=== PATIENT | male | born 1945 | race Caucasian/White ===

== ENCOUNTER 2018-04-09 08:18 | Emergency (ER) | payer OTHER ==
[~2018-04-09] VITALS: Ht 177.8 cm; Wt 82.1 kg
--- NOTE | 2018-04-09 08:19 | NUR ---
PT BIBA BLS TO BED 10
[2018-04-09 08:27] VITALS: BP 106/49
[2018-04-09] MEDS ORDERED: ALBUTEROL 0.083% 2.5 MG/3 ML NEBU INH ONE (08:55)
[2018-04-09] MEDS ORDERED: IPRATROPIUM 0.02% 0.5 MG/2.5 ML NEBU INH ONE (08:55)
--- NOTE | 2018-04-09 09:04 | NUR ---
PT TAKEN TO CT IN [place]
[2018-04-09 09:55] LABS: BASOPHILS # (AUTO) 0.1 K/uL (0.00-0.22); BASOPHILS % (AUTO) 1.3 % (0.0-2.0); EOSINOPHILS % (AUTO) 0.5 % (0.0-4.0); HEMATOCRIT 39.4 % (36-52); HEMOGLOBIN 13.4 g/dL (12.0-18.0); LYMPHOCYTES # (AUTO) 1.5 K/uL (2.0-11.5); LYMPHOCYTES % (AUTO) 29.2 % (20.5-51.1); MEAN CORPUSCULAR HEMOGLOBIN 30 pg (27-31); MEAN CORPUSCULAR HGB CONC 34 g/dL (33-37); MEAN CORPUSCULAR VOLUME 88.2 fL (80-94); MONOCYTES # (AUTO) 0.5 K/uL (0.8-1.0); MONOCYTES % (AUTO) 10.1 % (1.7-9.3); NEUTROPHILS % (AUTO) 58.9 % (42.2-75.2); PLATELET COUNT (AUTO) 86 K/uL (140-450); RED BLOOD CELL COUNT(AUTO) 4.47 MIL/uL (4.20-6.10); RED CELL DISTRIBUTION WIDTH 15.2 % (11.6-13.7); WHITE BLOOD COUNT (AUTO) 5.1 K/uL (4.8-10.8)
--- NOTE | 2018-04-09 10:03 | NUR ---
ADMTTING DX: GENERALIZED WEAKNESS HX: COPD LOC AWAKE AND ALERT RESPONSIVE HFW POSITION EDUCATION PROVIDED TO PATIENT WITH ACKNOWLEDGEMENT ON HHN THERAPY AND RESPIRATORY DRUGS HHN THERAPY GIVEN ORDERED ENCOURAGED PATIENT FOR INTERMITTENT DEEP BREATHING DURING THERAPY TOLERATED WELL WITHOUT INCIDENT
[2018-04-09 10:06] LABS: ANION GAP 8.8 (8-16); CARBON DIOXIDE 33.5 mmol/L (21-32); CHLORIDE 102 mmol/L (98-107); GLUCOSE 102 mg/dL (74-106); POTASSIUM 4.3 mmol/L (3.5-5.1); SODIUM SERUM 140 mmol/L (136-145); UREA NITROGEN, BLOOD 15 mg/dL (7-18)
[2018-04-09 10:13] LABS: AMYLASE 37 U/L (25-115); ASPARTATE AMINOTRANSFERASE 14 U/L (15-37); LIPASE 73 U/L (73-393); TOTAL BILIRUBIN 1.7 mg/dL (0.0-1.0)
[2018-04-09 10:18] LABS: PROTHROMBIN TIME 11.6 secs (10.8-13.4)
--- NOTE | 2018-04-09 11:00 | NUR ---
COVERING CARE FOR NURSE MARLENE
--- NOTE | 2018-04-09 11:30 | NUR ---
PATIENT IN NO APPARENT DISTRESS. AWAITING FOR DISPOSITION
--- NOTE | 2018-04-09 12:15 | NUR ---
PATIENT ASSISTED TO HALI UP TO VOID, TOLERATED
--- NOTE | 2018-04-09 13:03 | NUR ---
RECEIVED REPORT FROM MARLENE BILLINGSLEY FOR CONTINUITY OF CARE
[2018-04-09 13:17] LABS: APPEARANCE,URINE CLEAR (CLEAR); COLOR,URINE YELLOW (YELLOW)
[2018-04-09 13:18] LABS: BILIRUBIN,URINE NEGATIVE (NEGATIVE); BLOOD, URINE TRACE (NEGATIVE); UGLUCOSE NEGATIVE (NEGATIVE)
[2018-04-09 13:19] LABS: LEUKOCYTE ESTERASE ,URINE NEGATIVE (NEGATIVE); NITRITE, URINE NEGATIVE (NEGATIVE)
[2018-04-09 13:24] LABS: RBC,URINE 0-5 (RARE) /HPF (0-5); WBC,URINE 0-5 (RARE) /HPF (0-5)
--- NOTE | 2018-04-09 13:33 | NUR ---
PT PROVIDED WITH A URINAL.
--- NOTE | 2018-04-09 13:41 | NUR ---
URINE COLLECTED AND SENT TO LAB. PT RESTING IN BED SMILING WITH FAMILY AT BEDSIDE. VSS. O2 VIA N/C AT 2L/MIN. O2 SAT AT 99% WILL CONTINUE TO MONITOR
--- NOTE | 2018-04-09 14:00 | NUR ---
PT GIVEN FOOD TRAY
[2018-04-09 14:54] VITALS: BP 99/54
--- NOTE | 2018-04-09 14:54 | NUR ---
Patient discharged with v/s stable. Written and verbal after care instructions given and explained. Patient verbalized understanding. Wheel Chair Assisted with to car. All questions addressed prior to discharge. Advised to follow up with PMD.
== END 2018-04-09 14:54 | disposition home or self-care (01) ==
LOC: EDSEX 08:18 → MED 08:18
DX: R53.1 Weakness (principal); R42 Dizziness and giddiness; J44.9 Chronic obstructive pulmonary disease, unspecified; E11.9 Type 2 diabetes mellitus without complications; K21.9 Gastro-esophageal reflux disease without esophagitis; E07.9 Disorder of thyroid, unspecified; I25.10 Atherosclerotic heart disease of native coronary artery without angina pectoris; G20 Parkinson's disease; Z88.0 Allergy status to penicillin; Z88.1 Allergy status to other antibiotic agents; Z86.73 Personal history of transient ischemic attack (TIA), and cerebral infarction without residual deficits
CPT/HCPCS: 36415; 70450; 71045; 80053; 81001; 82150; 82948; 83690; 84484; 85025; 85610; 85730; 87040; 93005; 99285; J7613; J7644; Q0092

== ENCOUNTER 2019-12-14 02:44 | Emergency (ER) | payer OTHER ==
[~2019-12-14] VITALS: Ht 177.8 cm; Wt 81.6 kg
[2019-12-14 02:44] VITALS: BP 139/54
--- NOTE | 2019-12-14 02:44 | NUR ---
TRANSFERED SELF FROM [facility] TO BED 4.
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
--- NOTE | 2019-12-14 03:30 | NUR ---
RIGHT FOREARM PERIPHERAL IV STARTED ON FIRST ATTEMPT, 20G, GOOD BLOOD RETURN, FLUSHED WITHOLUT SYMPTOMS.
--- NOTE | 2019-12-14 04:00 | NUR ---
ASSISTED PATIENT TO RESTROOM FOR URINE SAMPLE, STANDBY ASSISTANCE NEEDED. BACK TO BED WITHOUT INCIDENT AND CONNECTED TO MONITOR.
[2019-12-14] MEDS ORDERED: NACL 0.9% 2,500 ML IV ONE (04:33)
[2019-12-14] MEDS ORDERED: VANCOMYCIN 1,000 MG in DEXTROSE 5% 250 ML IV ONE (04:35)
[2019-12-14] MEDS ORDERED: MEROPENEM 1,000 MG in NACL 0.9% 100 ML IV ONE (04:35)
--- NOTE | 2019-12-14 05:15 | NUR ---
LEFT KNEE OPEN WOUND CLEANED AND REDRESSED. ERMD AT BEDSIDE TO ASSESS WOUND. FOUL ODOR NOTED, SLIGHTLY BLEEDING (MINIMAL). DENIES PAIN. NO SWELLING NOTED, FULL RANGE OF MOTION OF KNEE.
[2019-12-14 05:22] LABS: APPEARANCE,URINE CLEAR (CLEAR); BILIRUBIN,URINE NEGATIVE (NEGATIVE); BLOOD, URINE 1+ (NEGATIVE); COLOR,URINE YELLOW (YELLOW); LEUKOCYTE ESTERASE ,URINE NEGATIVE (NEGATIVE); NITRITE, URINE NEGATIVE (NEGATIVE); UGLUCOSE NEGATIVE (NEGATIVE)
[2019-12-14 05:29] LABS: RED BLOOD CELL COUNT(AUTO) 3.27 MIL/uL (4.20-6.10); WHITE BLOOD COUNT (AUTO) 2.4 K/uL (4.8-10.8)
[2019-12-14 05:31] LABS: WBC,URINE 0-5 /HPF (0-5)
[2019-12-14 05:37] LABS: HEMOGLOBIN 8.6 g/dL (12.0-18.0); MEAN CORPUSCULAR HEMOGLOBIN 26 pg (27-31); MEAN CORPUSCULAR HGB CONC 31 g/dL (33-37); MEAN CORPUSCULAR VOLUME 85.5 fL (80-94); PLATELET COUNT (AUTO) 100 K/uL (140-450); RED CELL DISTRIBUTION WIDTH 16.9 % (11.6-13.7)
[2019-12-14 05:41] LABS: ALBUMIN 4.3 g/dL (3.4-5.0); ANION GAP 10.9 (8-16); ASPARTATE AMINOTRANSFERASE 22 U/L (15-37); CARBON DIOXIDE 32.1 mmol/L (21-32); CHLORIDE 108 mmol/L (98-107); GLUCOSE 108 mg/dL (74-106); SODIUM SERUM 147 mmol/L (136-145); TOTAL BILIRUBIN 2.2 mg/dL (0.0-1.0); UREA NITROGEN, BLOOD 23 mg/dL (7-18)
[2019-12-14 05:50] LABS: LYMPHOCYTES % (MANUAL) 48 % (20-46); MONOCYTES % (MANUAL) 2 % (5-12)
--- NOTE | 2019-12-14 05:50 | NUR ---
PATIENT RESTING WELL IN BED, OPENS EYES SPONTANEOUSLY, ANOx4, DENIES HALLUCINATIONS/ANXIETY/PAIN. ALL NEEDS MET AT THIS TIME. PENDING D/C AND [facility] FOR TRANSFER. VITALS WNL, CONNECTED TO MONITOR. SIDERAILS UP x2, SAFETY MEASURES IN PLACE.
--- NOTE | 2019-12-14 07:21 | NUR ---
RECEIVED REPORT FROM JOSE CRUZ POSEY PT WAITING FOR TRANSPORT TO [facility].PT AWAKE ,ALERT, [facility] .
--- NOTE | 2019-12-14 07:44 | NUR ---
Patient discharged with v/s stable. Written and verbal after care instructions given and explained regarding wound infection. Patient alert, oriented and verbalized understanding of instructions. Wheel Chair Assisted with to mcc. All questions addressed prior to discharge. ID band removed. Patient advised to follow up with PMD. Rx of keflex given. Patient educated on indication of medication including possible reaction and side effects. Opportunity to ask questions provided and answered.
[2019-12-14 07:45] VITALS: BP 104/68
== END 2019-12-14 07:44 | disposition home or self-care (01) ==
LOC: MED 02:44
DX: S80.212A Abrasion, left knee, initial encounter (principal); R41.0 Disorientation, unspecified; L03.116 Cellulitis of left lower limb; J45.909 Unspecified asthma, uncomplicated; I11.0 Hypertensive heart disease with heart failure; I50.9 Heart failure, unspecified; I25.2 Old myocardial infarction; F43.10 Post-traumatic stress disorder, unspecified; Z88.0 Allergy status to penicillin; Z88.1 Allergy status to other antibiotic agents; X58.XXXA Exposure to other specified factors, initial encounter; Y93.89 Activity, other specified; Y92.89 Other specified places as the place of occurrence of the external cause; Y99.8 Other external cause status
CPT/HCPCS: 36415; 36600; 71045; 80053; 81001; 82803; 83605; 85025; 87040; 93005; 99285; Q0092

== ENCOUNTER 2019-12-17 09:50 | Emergency (ER) | payer OTHER ==
[~2019-12-17] VITALS: Ht 177.8 cm; Wt 81.7 kg
--- NOTE | 2019-12-17 09:50 | NUR ---
Patient BIBA BLS, transferred to bed 4. RN evaluating patient at bedside.
[2019-12-17 09:51] VITALS: BP 143/60
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
--- NOTE | 2019-12-17 09:58 | NUR ---
DR TERRY AT BEDSIDE EXAMINING PT
--- NOTE | 2019-12-17 10:12 | NUR ---
20G PLACED AND LABS DRAWN FROM IV AT THIS TIME
--- NOTE | 2019-12-17 10:13 | NUR ---
PT TO CT VIA [facility]
[2019-12-17 10:18] LABS: HEMATOCRIT 32.9 % (36-52); HEMOGLOBIN 9.8 g/dL (12.0-18.0); MEAN CORPUSCULAR HEMOGLOBIN 26 pg (27-31); MEAN CORPUSCULAR HGB CONC 30 g/dL (33-37); PLATELET COUNT (AUTO) 122 K/uL (140-450); RED BLOOD CELL COUNT(AUTO) 3.83 MIL/uL (4.20-6.10); RED CELL DISTRIBUTION WIDTH 17.1 % (11.6-13.7); WHITE BLOOD COUNT (AUTO) 2.1 K/uL (4.8-10.8)
[2019-12-17 11:02] LABS: LYMPHOCYTES % (MANUAL) 52 % (20-46); MONOCYTES % (MANUAL) 5 % (5-12)
[2019-12-17 11:10] LABS: ALBUMIN 3.9 g/dL (3.4-5.0); ASPARTATE AMINOTRANSFERASE 45 U/L (15-37); CARBON DIOXIDE 31.4 mmol/L (21-32); CHLORIDE 107 mmol/L (98-107); CREATININE 1.2 mg/dL (0.6-1.3); GLUCOSE 121 mg/dL (74-106); POTASSIUM 3.4 mmol/L (3.5-5.1); SODIUM SERUM 147 mmol/L (136-145); THYROID STIMULATING HORMONE 3.04 uIU/mL (0.34-3.74); TOTAL BILIRUBIN 2.6 mg/dL (0.0-1.0); UREA NITROGEN, BLOOD 21 mg/dL (7-18)
[2019-12-17] MEDS ORDERED: NACL 0.9% 1,000 ML IV ONE ×2 (11:35→13:45)
--- NOTE | 2019-12-17 12:52 | NUR ---
LAYING IN BED AWAKE AND ALERT. RR EVEN AND UNLABORED. DENIES PAIN AT THIS TIME. X 2 SIDE RAILS RAISED, BED LOCKED AND IN LOW POSITION. WILL CONTINUE TO MONITOR
--- NOTE | 2019-12-17 13:00 | NUR ---
RECEIVED REPORT FROM JOSE CRUZ RAMIREZ AND [facility]
--- NOTE | 2019-12-17 13:15 | NUR ---
PT LAYING IN BED. VSS. A/O X4.
[2019-12-17 14:46] LABS: APPEARANCE,URINE CLOUDY (CLEAR); BILIRUBIN,URINE NEGATIVE (NEGATIVE); BLOOD, URINE 3+ (NEGATIVE); COLOR,URINE ORANGE (YELLOW); LEUKOCYTE ESTERASE ,URINE NEGATIVE (NEGATIVE); NITRITE, URINE NEGATIVE (NEGATIVE); PH,URINE 5.5 (5.0-9.0); UGLUCOSE NEGATIVE (NEGATIVE)
--- NOTE | 2019-12-17 15:30 | NUR ---
PT LAYING IN BED WITH URINAL AT BEDSIDE. PT IS AWAKE AND ALERT. VSS
[2019-12-17 15:31] LABS: WBC,URINE NONE SEEN /HPF (0-5)
[2019-12-17 15:32] LABS: URINE AMORPHOUS URATE 3+ /HPF (None Seen)
[2019-12-17] MEDS ORDERED: ASPI81EC98 PO (15:59)
[2019-12-17] MEDS ORDERED: SYN.05 PO (15:59)
[2019-12-17] MEDS ORDERED: TAMS0.4C96 PO (15:59)
[2019-12-17] MEDS ORDERED: METO25TA14 PO (15:59)
[2019-12-17] MEDS ORDERED: GABA300C PO (15:59)
[2019-12-17] MEDS ORDERED: QUET25TA PO (15:59)
[2019-12-17] MEDS ORDERED: CLON1TAB PO (15:59)
[2019-12-17] MEDS ORDERED: NITR0.4T2 SL (15:59)
[2019-12-17] MEDS ORDERED: CARB1TER4 PO ×2 (15:59)
[2019-12-17] MEDS ORDERED: PRAM0.5T4 PO (15:59)
--- NOTE | 2019-12-17 17:00 | NUR ---
PT LAYIKNG IN BED AWAKE AND ALERT VSS.
--- NOTE | 2019-12-17 17:45 | NUR ---
MIMA CASTELLON [facility] IN [place] REQUESTING TO SPEAK WITH PATIENT -- PT HAS AGREED TO SPEAK WITH MIMA CASTELLON.
--- NOTE | 2019-12-17 17:57 | NUR ---
[place] at bedside.
--- NOTE | 2019-12-17 18:13 | NUR ---
PT LAYING IN BED AWAKE AND ALERT. PT STATES THAT HE WANT TO TAKE HIS HOME MEDS. PT DOES NOT WANT TO EAT THE MEAL TRAY PROVIDED IUNTIL HE TAKES HIS MEDS.
--- NOTE | 2019-12-17 18:46 | NUR ---
Dr. Kearns is evaluating the patient at bedside.
--- NOTE | 2019-12-17 20:25 | NUR ---
PT LEFT AMA WITH GIRLFRIEND VIA WHEELCHAIR
--- NOTE | 2019-12-17 20:27 | NUR ---
AMPatient does not wish to proceed with medical care recommended by DR TERRY. Patient given information related to possible complications, up to and including , which could occur as a result of leaving hospital at this time. Patient verbalizes understanding of risks involved leaving against medical advice. Patient has signed AMA form.
== END 2019-12-17 20:26 | disposition left against medical advice (07) ==
LOC: MED 09:50
DX: R53.1 Weakness (principal); E86.0 Dehydration; J45.909 Unspecified asthma, uncomplicated; I50.9 Heart failure, unspecified; I11.0 Hypertensive heart disease with heart failure; I25.2 Old myocardial infarction; Z85.46 Personal history of malignant neoplasm of prostate; G20 Parkinson's disease; Z79.82 Long term (current) use of aspirin; Z79.899 Other long term (current) drug therapy; Z88.0 Allergy status to penicillin; Z88.1 Allergy status to other antibiotic agents
CPT/HCPCS: 36415; 70450; 71045; 80053; 81001; 84443; 85025; 93005; 96360; 96361; 99285; J7030; Q0092

== ENCOUNTER 2019-12-23 18:56 | Emergency (ER) | payer OTHER ==
[~2019-12-23] VITALS: Ht 175.3 cm; Wt 78.5 kg
[~2019-12-23 18:56] MED LIST: ASPI81EC98 PO; CARB1TER4 PO; CLON1TAB PO; GABA300C PO; METO25TA14 PO; NITR0.4T2 SL; PRAM0.5T4 PO; QUET25TA PO; SYN.05 PO; TAMS0.4C96 PO
[2019-12-23 19:01] VITALS: BP 121/70
[2019-12-23] MEDS ORDERED: ACETAMINOPHEN EXTRA STRENGTH 500 MG TAB PO ONE (19:35)
[2019-12-23 22:20] VITALS: BP 132/60
== END 2019-12-23 22:20 | disposition home or self-care (01) ==
LOC: MED 18:56
DX: S80.02XA Contusion of left knee, initial encounter (principal); S80.212A Abrasion, left knee, initial encounter; J44.9 Chronic obstructive pulmonary disease, unspecified; I11.9 Hypertensive heart disease without heart failure; Z79.899 Other long term (current) drug therapy; Z79.82 Long term (current) use of aspirin; Z88.0 Allergy status to penicillin; Z88.1 Allergy status to other antibiotic agents; Z85.46 Personal history of malignant neoplasm of prostate; W18.30XA Fall on same level, unspecified, initial encounter; Y93.89 Activity, other specified; Y92.89 Other specified places as the place of occurrence of the external cause; Y99.8 Other external cause status
CPT/HCPCS: 71045; 72170; 73560; 93005; Q0092; 99284

== ENCOUNTER 2020-02-25 00:15 | Emergency (ER) | payer OTHER ==
[~2020-02-25] VITALS: Ht 177.8 cm; Wt 77.1 kg
--- NOTE | 2020-02-25 00:18 | NUR ---
[facility]
[2020-02-25 00:25] VITALS: BP 114/46
--- NOTE | 2020-02-25 00:30 | NUR ---
74 Y/O MALE BIBA FROM [facility] S/P FALL X2 ABOUT 30MINS AGO. SMALL LAC TO RT ELBOW. NO LOC. PT MOVED SELF FROM EMS GURNEY TO BED 11 WITH MINIMAL ASSISTANCE. DENIES N/V/D; SKIN IS PINK/WARM/DRY; AAOX4; PT DENIES ANY FEVER, CP, SOB, OR COUGH AT THIS TIME; PATIENT STATES PAIN OF 2/10 AT THIS TIME; VSS; PATIENT POSITIONED FOR COMFORT; HOB ELEVATED; BEDRAILS UP X2; BED DOWN AND LOCKED. MEDHX- PROSTATE CA, HTN, PARKINSONS ALLX- PCN, AZITHROMYCIN
[2020-02-25] MEDS ORDERED: LIDOCAINE 2% 1000 MG/50 ML VIAL INJ ONE (00:40)
--- NOTE | 2020-02-25 00:50 | NUR ---
LAB AT BEDSIDE
[2020-02-25 00:59] LABS: HEMOGLOBIN 9.2 g/dL (12.0-18.0); MEAN CORPUSCULAR HEMOGLOBIN 25 pg (27-31); MONOCYTES # (AUTO) 0.2 K/uL (0.8-1.0); WHITE BLOOD COUNT (AUTO) 2.8 K/uL (4.8-10.8)
--- NOTE | 2020-02-25 01:04 | NUR ---
AT BEDSIDE FOR BEDSIDE LAC PROCEDURE.
[2020-02-25 01:05] LABS: BASOPHILS % (AUTO) 0.4 % (0.0-2.0); EOSINOPHILS % (AUTO) 0.1 % (0.0-4.0); HEMATOCRIT 30.4 % (36-52); LYMPHOCYTES # (AUTO) 0.5 K/uL (2.0-11.5); LYMPHOCYTES % (AUTO) 17.3 % (20.5-51.1); MEAN CORPUSCULAR HGB CONC 30 g/dL (33-37); MEAN CORPUSCULAR VOLUME 83.7 fL (80-94); MONOCYTES % (AUTO) 6.3 % (1.7-9.3); NEUTROPHILS # (AUTO) 2.1 K/uL (1.8-7.7); NEUTROPHILS % (AUTO) 75.9 % (42.2-75.2); PLATELET COUNT (AUTO) 112 K/uL (140-450); RED BLOOD CELL COUNT(AUTO) 3.63 MIL/uL (4.20-6.10); RED CELL DISTRIBUTION WIDTH 16.1 % (11.6-13.7)
[2020-02-25 01:13] LABS: ALBUMIN 4.1 g/dL (3.4-5.0); ANION GAP 14.2 (8-16); ASPARTATE AMINOTRANSFERASE 20 U/L (15-37); CARBON DIOXIDE 27.3 mmol/L (21-32); CHLORIDE 108 mmol/L (98-107); CREATININE 1.5 mg/dL (0.6-1.3); GLUCOSE 98 mg/dL (74-106); POTASSIUM 3.5 mmol/L (3.5-5.1); SODIUM SERUM 146 mmol/L (136-145); TOTAL BILIRUBIN 2.6 mg/dL (0.0-1.0); UREA NITROGEN, BLOOD 18 mg/dL (7-18)
--- NOTE | 2020-02-25 01:56 | NUR ---
ATTEMPTED TO PLACE PT IN GOWN BUT PT STATED HE "IS OKAY WITH HIS SHIRT AND DOES NOT WANT TO CHANGE."
--- NOTE | 2020-02-25 02:04 | NUR ---
PT TAKEN TO CT VIA WHEELCHAIR
--- NOTE | 2020-02-25 02:11 | NUR ---
PT RETURNED FROM CT VIA WHEELCHAIR. STABLE. VSS. WILL CONTINUE TO MONITOR.
--- NOTE | 2020-02-25 02:19 | NUR ---
PT RESTING IN BED IN POSITION OF COMFORT, BED LOW AND LOCKED, 2 SIDERAILS UP, VSS, WILL CONTINUE TO MONITOR.
--- NOTE | 2020-02-25 02:55 | NUR ---
PT TAKEN TO CT VIA WHEELCHAIR
--- NOTE | 2020-02-25 03:10 | NUR ---
PT RETURNED FROM CT VIA WHEELCHAIR, STABLE , VSS, WILL CONTINUE TO MONITOR.
[2020-02-25 03:38] VITALS: BP 110/68
== END 2020-02-25 03:38 ==
LOC: MED 00:15
DX: S51.011A Laceration without foreign body of right elbow, initial encounter (principal); E80.6 Other disorders of bilirubin metabolism; D64.9 Anemia, unspecified; J44.9 Chronic obstructive pulmonary disease, unspecified; J45.909 Unspecified asthma, uncomplicated; I10 Essential (primary) hypertension; I51.89 Other ill-defined heart diseases; Z88.0 Allergy status to penicillin; Z88.1 Allergy status to other antibiotic agents; Z79.899 Other long term (current) drug therapy; W01.0XXA Fall on same level from slipping, tripping and stumbling without subsequent striking against object, initial encounter; Y93.89 Activity, other specified; Y92.89 Other specified places as the place of occurrence of the external cause; Y99.8 Other external cause status; Z79.82 Long term (current) use of aspirin
CPT/HCPCS: 12001; 36415; 70450; 74176; 80053; 85025; 93005; 99285; J2001

== ENCOUNTER 2020-02-25 15:54 | Emergency (ER) | payer OTHER ==
[~2020-02-25] VITALS: Ht 177.8 cm; Wt 77.1 kg
[2020-02-25 15:54] VITALS: BP 146/53
--- NOTE | 2020-02-25 15:54 | NUR ---
Pt triaged, negative covid-19 screen, pt wearing mask, appropriate PPE worn. Pt on bed delay, awaiting for bed availability.
--- NOTE | 2020-02-25 16:31 | NUR ---
PT TAKEN TO ER BED 06
--- NOTE | 2020-02-25 16:39 | NUR ---
PT CRISTIAN FROM [facility] C/O INCREASED CONFUSION. PRIMARY DR RECOMMENEDED PT TO GO TO THE ER FOR INCREASE MEDICATION CONSULT. BASELINE A/OX1. PT DENIES PAIN. RR EVEN AND UNLABORED. PMHX: DEMENTIA, THYROID ALLERGIES; PENICILLIN
--- NOTE | 2020-02-25 17:07 | NUR ---
PT GIVEN URINAL FOR COLLECTION OF URINE
--- NOTE | 2020-02-25 17:16 | NUR ---
PT STATES HE IS UNABLE TO GIVE URINE, WILL FOLLOW UP.
--- NOTE | 2020-02-25 17:16 | NUR ---
PT TO CT VIA [facility]
--- NOTE | 2020-02-25 17:38 | NUR ---
LAB AT BEDSIDE FOR BLOOD DRAW
--- NOTE | 2020-02-25 17:58 | NUR ---
PT STATES HE CANNOT GIVE URINE, WHEN STRAIGHT CATH WAS SUGGESTED PT DECLINED. DR AVILA MADE AWARE
[2020-02-25 18:00] LABS: BASOPHILS % (AUTO) 0.5 % (0.0-2.0); EOSINOPHILS % (AUTO) 0.2 % (0.0-4.0); HEMATOCRIT 30.6 % (36-52); HEMOGLOBIN 9.3 g/dL (12.0-18.0); LYMPHOCYTES # (AUTO) 1.5 K/uL (2.0-11.5); MEAN CORPUSCULAR HEMOGLOBIN 25 pg (27-31); MEAN CORPUSCULAR HGB CONC 30 g/dL (33-37); MEAN CORPUSCULAR VOLUME 83.2 fL (80-94); MONOCYTES # (AUTO) 0.2 K/uL (0.8-1.0); MONOCYTES % (AUTO) 6.1 % (1.7-9.3); NEUTROPHILS # (AUTO) 0.9 K/uL (1.8-7.7); NEUTROPHILS % (AUTO) 33.2 % (42.2-75.2); PLATELET COUNT (AUTO) 112 K/uL (140-450); RED BLOOD CELL COUNT(AUTO) 3.67 MIL/uL (4.20-6.10); RED CELL DISTRIBUTION WIDTH 16.2 % (11.6-13.7); WHITE BLOOD COUNT (AUTO) 2.6 K/uL (4.8-10.8)
[2020-02-25 18:14] LABS: ALBUMIN 4.1 g/dL (3.4-5.0); ANION GAP 11.8 (8-16); ASPARTATE AMINOTRANSFERASE 23 U/L (15-37); CARBON DIOXIDE 28.9 mmol/L (21-32); CHLORIDE 109 mmol/L (98-107); CREATININE 1.2 mg/dL (0.6-1.3); GLUCOSE 105 mg/dL (74-106); POTASSIUM 3.7 mmol/L (3.5-5.1); SODIUM SERUM 146 mmol/L (136-145); TOTAL BILIRUBIN 2.6 mg/dL (0.0-1.0); UREA NITROGEN, BLOOD 20 mg/dL (7-18)
--- NOTE | 2020-02-25 18:38 | NUR ---
[facility] ETA 2030
--- NOTE | 2020-02-25 18:39 | NUR ---
PT RESTING WITH EYES CLOSED VISIBLE RISE AND FALL OF THE CHEST. AROUSABLE TO NAME. VSS. WILL CONTINUE TO MONITOR
--- NOTE | 2020-02-25 19:30 | NUR ---
ASSUMED CARE OF PT AT THIS TIME. PT APPEARS TO BE IN NO DISTRESS. PT VSS. WILL CONTINUE TO MONITOR. WAITING FOR [facility] TO TAKE PT BACK TO FACILITY.
--- NOTE | 2020-02-25 20:35 | NUR ---
Patient discharged with v/s stable. Written and verbal after care instructions given and explained. Patient verbalized understanding. Ambulance Transport with to [facility]. All questions addressed prior to discharge. Advised to follow up with PMD.
[2020-02-25 20:45] VITALS: BP 136/67
== END 2020-02-25 20:35 ==
LOC: MED 15:54
DX: F03.90 Unspecified dementia, unspecified severity, without behavioral disturbance, psychotic disturbance, mood disturbance, and anxiety (principal); E07.9 Disorder of thyroid, unspecified; J44.9 Chronic obstructive pulmonary disease, unspecified; J45.909 Unspecified asthma, uncomplicated; I10 Essential (primary) hypertension; I51.89 Other ill-defined heart diseases; Z88.1 Allergy status to other antibiotic agents; Z88.0 Allergy status to penicillin; Z85.46 Personal history of malignant neoplasm of prostate; Z79.899 Other long term (current) drug therapy
CPT/HCPCS: 36415; 70450; 80053; 82140; 85025; 99284

== ENCOUNTER 2020-03-07 13:02 | Emergency (ER) | payer OTHER ==
[~2020-03-07] VITALS: Ht 154.9 cm; Wt 68.0 kg
--- NOTE | 2020-03-07 13:04 | NUR ---
PT BIBA BLS TO ER BED 04
[2020-03-07 13:08] VITALS: BP 164/92
[2020-03-07 13:15] VITALS: BP 164/92
--- NOTE | 2020-03-07 13:19 | NUR ---
mesfin montgomery from [facility] , found in a corner sitting in the side with walker at side, left hand bruises.pt aox3 denies pain,no limitation of left hand rom.noted bruises left tibial area, dried up blood left hands. pmhxs dimentia , htn , parkinson.
--- NOTE | 2020-03-07 13:30 | NUR ---
dr kaiser at bedside evaluating pt.
[2020-03-07] MEDS ORDERED: BACITRACIN OINT 500 UNITS/GM PKT TP ONE (13:50)
--- NOTE | 2020-03-07 14:00 | NUR ---
[facility] at bedside cleaning wounds.
--- NOTE | 2020-03-07 14:31 | NUR ---
pt in bed awake, signed dc papers, waiting for transport.
--- NOTE | 2020-03-07 14:47 | NUR ---
pt sitting in bed awake, alert, verbalizing dont want to go without security with him.waiting for transport.
--- NOTE | 2020-03-07 15:07 | NUR ---
pt on wheelchair , awake , alert.
--- NOTE | 2020-03-07 15:12 | NUR ---
Patient discharged with v/s stable. Written and verbal after care instructions given and explained. Patient verbalized understanding. Wheel Chair Assisted with to correction. All questions addressed prior to discharge. Advised to follow up with PMD.
== END 2020-03-07 15:12 | disposition home or self-care (01) ==
LOC: MED 13:02
DX: S51.812A Laceration without foreign body of left forearm, initial encounter (principal); E07.9 Disorder of thyroid, unspecified; F03.90 Unspecified dementia, unspecified severity, without behavioral disturbance, psychotic disturbance, mood disturbance, and anxiety; I10 Essential (primary) hypertension; I51.9 Heart disease, unspecified; J45.909 Unspecified asthma, uncomplicated; J44.9 Chronic obstructive pulmonary disease, unspecified; Z79.899 Other long term (current) drug therapy; Z85.118 Personal history of other malignant neoplasm of bronchus and lung; Z88.0 Allergy status to penicillin; Z88.1 Allergy status to other antibiotic agents; X58.XXXA Exposure to other specified factors, initial encounter; Y93.89 Activity, other specified; Y92.89 Other specified places as the place of occurrence of the external cause; Y99.8 Other external cause status
CPT/HCPCS: 99282

== ENCOUNTER 2020-07-30 13:28 | Emergency (ER) | payer OTHER, SELFPAY ==
[~2020-07-30] VITALS: Ht 177.8 cm; Wt 71.2 kg
[2020-07-30 13:28] VITALS: BP 119/87
[~2020-07-30 13:28] MED LIST changes: +AZIT250T3 PO; +CARB1TER PO; -CARB1TER4 PO; -GABA300C PO; -PRAM0.5T4 PO; -QUET25TA PO
[2020-07-30] MEDS ORDERED: SODIUM CHLORIDE FLUSH 10 ML SYR IVF STA (13:37)
--- NOTE | 2020-07-30 13:59 | NUR ---
PROVIDED PT WITH URINAL, STATES HE CAN'T URINATE RIGHT NOW BECAUSE HE DID RIGHT BEFORE LEAVING WITH AMBULANCE. ENCOURAGED PT TO TRY TO PROVIDE EVEN A SMALL SAMPLE.
--- NOTE | 2020-07-30 14:00 | NUR ---
BIBA W C/O NON RADIATING UMBILLICAL ABD PAIN 02/15 STARTING APPROX. 11AM TODAY. PT DENIES N/V/D. LBM 07/29/20 AND REGULAR PER PT. PT DENIES PAIN AT THIS TIME. PT STATES "IT FEELS LIKE GAS PAIN" BOWEL SOUNDS PRESENT X4, ABD SOFT/FLAT/NON TENDER TO PALPATION. DENIES DYSURIA. PT PLACED ON BEDSIDE CHIEF OPERATOR SYNTHESIS, BED IN LOW POSITION, SIDE RAIL UP X1.
--- NOTE | 2020-07-30 14:01 | NUR ---
ZAK COVID SWAB GIVEN TO YUSUF FROM LAB
[2020-07-30 14:03] LABS: HEMATOCRIT 28.2 % (36-52); HEMOGLOBIN 8.5 g/dL (12.0-18.0); MEAN CORPUSCULAR HEMOGLOBIN 25 pg (27-31); MEAN CORPUSCULAR HGB CONC 30 g/dL (33-37); MEAN CORPUSCULAR VOLUME 83.8 fL (80-94); PLATELET COUNT (AUTO) 121 K/uL (140-450); RED BLOOD CELL COUNT(AUTO) 3.37 MIL/uL (4.20-6.10); RED CELL DISTRIBUTION WIDTH 17.4 % (11.6-13.7); WHITE BLOOD COUNT (AUTO) 2.5 K/uL (4.8-10.8)
[2020-07-30 14:19] LABS: ALBUMIN 3.5 g/dL (3.4-5.0); ANION GAP 9.1 (8-16); ASPARTATE AMINOTRANSFERASE 20 U/L (15-37); CARBON DIOXIDE 29.6 mmol/L (21-32); CHLORIDE 110 mmol/L (98-107); GLUCOSE 103 mg/dL (74-106); LIPASE 64 U/L (73-393); POTASSIUM 3.7 mmol/L (3.5-5.1); SODIUM SERUM 145 mmol/L (136-145); TOTAL BILIRUBIN 1.5 mg/dL (0.0-1.0); UREA NITROGEN, BLOOD 20 mg/dL (7-18)
[2020-07-30 14:42] LABS: BASOPHILS % (MANUAL) 0 % (0-2); EOSINOPHILS % (MANUAL) 0 % (0-4); LYMPHOCYTES % (MANUAL) 39 % (20-46); MONOCYTES % (MANUAL) 4 % (5-12)
--- NOTE | 2020-07-30 15:30 | NUR ---
report given to Marilu at [facility]
[2020-07-30] MEDS ORDERED: SIMETHICONE 40 MG/0.6 ML PO STA (15:58)
--- NOTE | 2020-07-30 16:10 | NUR ---
PHARMACY WILL BRING SIMETHICONE OVER
[2020-07-30 17:57] VITALS: BP 127/69
--- NOTE | 2020-07-30 17:58 | NUR ---
Patient discharged to [facility] via transport with v/s stable.
== END 2020-07-30 17:58 | disposition home or self-care (01) ==
LOC: MED 13:28
DX: R10.9 Unspecified abdominal pain (principal); D61.818 Other pancytopenia; E07.9 Disorder of thyroid, unspecified; F03.90 Unspecified dementia, unspecified severity, without behavioral disturbance, psychotic disturbance, mood disturbance, and anxiety; I51.89 Other ill-defined heart diseases; I10 Essential (primary) hypertension; J44.9 Chronic obstructive pulmonary disease, unspecified; G20 Parkinson's disease; Z88.1 Allergy status to other antibiotic agents; Z88.0 Allergy status to penicillin; Z79.899 Other long term (current) drug therapy; Z85.9 Personal history of malignant neoplasm, unspecified; Z20.828 Contact with and (suspected) exposure to other viral communicable diseases
CPT/HCPCS: 36415; 80053; 83690; 84484; 85025; 93005; 99284

== ENCOUNTER 2020-09-02 21:01 | Emergency (ER) | payer OTHER, SELFPAY ==
[~2020-09-02] VITALS: Ht 177.8 cm; Wt 77.1 kg
[2020-09-02 21:05] VITALS: BP 110/80
--- NOTE | 2020-09-02 21:05 | NUR ---
PT BIBA BLS. TAKEN TO BED 9
--- NOTE | 2020-09-02 21:06 | NUR ---
75 YO M CRISTIAN FROM [facility] WITH C/C OF CONT. BLEEDING IN RT KNEE AFTER UNWITNESSED FALL 09/01. PT DENIES PAIN. EMT STATED BLEEDING WAS CONTROLLED YESTERDAY, BUT TODAY STARTED BLEEDING AGAIN. KNEE LAC IS REINFORCED WITH GAUZE. EMT STATED THEY WERE HAND A BAG OF RAGS THAT WERE FULL OF BLOOD. PT STATED HE HAS A HX OF FALLS D/T PARKINSONS. PT USES WALKER TO AMBULATE. HX: PARKINSONS, PROSTATE CANCER, URINARY FLOW OBSTRUCTION RX: ASA ALLERG: PENICILLINS, AZITHROMYCIN
--- NOTE | 2020-09-02 21:06 | NUR ---
Sangeetha craig in [facility] - 09/02/20 at 2109 by ANDRAE PT CRISTIAN VEGA. TAKEN TO BED 11
[2020-09-02] MEDS ORDERED: BACITRACIN OINT 500 UNITS/GM PKT TP STA (22:11)
--- NOTE | 2020-09-02 22:28 | NUR ---
PT WOUND COVERED WITH ISLAND DRESSING AFTER BACITRACIN APPLIED
--- NOTE | 2020-09-02 23:20 | NUR ---
pt's diaper changed.
[2020-09-02] MEDS ORDERED: BACITRACIN OINT 500 UNITS/GM PKT TP ONE (23:22)
--- NOTE | 2020-09-02 23:45 | NUR ---
ANTIGEN COVID SWAB COLLECTED VIA NASAL. SWAB WALKED TO LAB.
--- NOTE | 2020-09-03 00:21 | NUR ---
PT ASLEEP IN BED. EQUAL CHEST RISE AND FALL. BED LOCKED AND IN LOWEST POSITION. SIDE RAILS X2. ALL PT NEEDS MET AT THIS TIME.
--- NOTE | 2020-09-03 00:31 | NUR ---
CRISTYD MADE AWARE ABOUT FLUCTUATING BP AND BLEEDING CONT. NO NEW ORDERS AT THIS TIME.
--- NOTE | 2020-09-03 00:45 | NUR ---
PT PROVIDED WITH EXTRA BLANKET PER REQUEST. REPOSITIONED FOR COMFORT. SIDE RAILS X2, ON MONITOR AND PULSE OX. BED LOCKED IN LOWEST POSITION.
--- NOTE | 2020-09-03 02:35 | NUR ---
pt is resting. equal rise and fall of chest wall, unlabored breathing. bed locked in lowest position, side rails x2.
--- NOTE | 2020-09-03 04:03 | NUR ---
EQUAL RISE AND FALL OF CHEST WALL, UNLABORED BREATHING. PT IS SLEEPING. ON MONITOR AND PULSE OX. BED LOCKED IN LOWEST POSITION, SIDE RAILS X2.
--- NOTE | 2020-09-03 06:36 | NUR ---
pt's diaper and sheets changed. provided with new blankets. bed locked in lowest position, side rails x2.
--- NOTE | 2020-09-03 06:39 | NUR ---
paged security for new set of pants.
--- NOTE | 2020-09-03 07:10 | NUR ---
REPORT GIVEN TO JOSE CRUZ CHAVEZ. TRANSFER OF CARE AT THIS TIME.
--- NOTE | 2020-09-03 08:02 | NUR ---
Pt resting in bed, respirations even and unlabored with equal chest rise & fall bilaterally, VSS on bedside monitor.
--- NOTE | 2020-09-03 09:47 | NUR ---
Breakfast tray dropped off to ER by [facility] at this time. Offered breakfast to pt, pt refused at this time.
--- NOTE | 2020-09-03 11:35 | NUR ---
[facility] [employer] [facility] at bedside.
--- NOTE | 2020-09-03 11:38 | NUR ---
Patient discharged with v/s stable. Written and verbal after care instructions given and explained. Patient verbalized understanding. Transport via gurney by [facility]. All questions addressed prior to discharge. Advised to follow up with PMD.
[2020-09-03 11:40] VITALS: BP 111/58
== END 2020-09-03 11:38 | disposition home or self-care (01) ==
LOC: MED 21:01
DX: S81.012A Laceration without foreign body, left knee, initial encounter (principal); E07.9 Disorder of thyroid, unspecified; F03.90 Unspecified dementia, unspecified severity, without behavioral disturbance, psychotic disturbance, mood disturbance, and anxiety; I10 Essential (primary) hypertension; I51.89 Other ill-defined heart diseases; J44.9 Chronic obstructive pulmonary disease, unspecified; Z88.0 Allergy status to penicillin; Z88.1 Allergy status to other antibiotic agents; Z85.9 Personal history of malignant neoplasm, unspecified; Z20.828 Contact with and (suspected) exposure to other viral communicable diseases; Z79.899 Other long term (current) drug therapy; W19.XXXA Unspecified fall, initial encounter; Y93.89 Activity, other specified; Y92.89 Other specified places as the place of occurrence of the external cause; Y99.8 Other external cause status
CPT/HCPCS: 73562; 90471; 90715; 99284

== ENCOUNTER 2020-09-03 16:49 | Emergency (ER) | payer OTHER, SELFPAY ==
[~2020-09-03] VITALS: Ht 177.8 cm; Wt 77.1 kg
--- NOTE | 2020-09-03 16:51 | NUR ---
PT TAKEN TO BED 3 VIA GURNEY BY EMS.
[2020-09-03 16:53] VITALS: BP 157/67
--- NOTE | 2020-09-03 17:03 | NUR ---
PT PLACED ON PULSE OX AND 3 LEAD ECG.
--- NOTE | 2020-09-03 17:04 | NUR ---
XR AT BEDSIDE.
--- NOTE | 2020-09-03 17:07 | NUR ---
75 Y/M Pt mesfin from [facility] for ALOC. Per facility patient was found in bed unresponsive and when stimulated patient did not want to get out of bed. UPON PTS ARRIVAL PT A XO X 3 TO PERSON, PLACE AND EVENT. PT DENIES ANY PAIN AT THIS TIME. PTS RR EVEN AND UNLABORED. DENIES COUGH, REPORTS SOB WHILE LYING FLAT. PULSES 2 +. DENIES DYSURIA, CP. FACIAL SYMMETRY AND B HAND STRENGTH EQUAL. medhx: parkinsons, prostate ca, dementia
--- NOTE | 2020-09-03 17:26 | NUR ---
LAB AT BEDSIDE.
--- NOTE | 2020-09-03 17:39 | NUR ---
RECTAL TEMP 98.4, ER MD HANDY MADE AWARE.
--- NOTE | 2020-09-03 17:42 | NUR ---
Dr Dave at bedside examining patient
[2020-09-03 17:45] LABS: HEMOGLOBIN 7.9 g/dL (12.0-18.0)
[2020-09-03 17:52] LABS: HEMATOCRIT 26.5 % (36-52); MEAN CORPUSCULAR HEMOGLOBIN 25 pg (27-31); MEAN CORPUSCULAR HGB CONC 30 g/dL (33-37); MEAN CORPUSCULAR VOLUME 82.9 fL (80-94); PLATELET COUNT (AUTO) 142 K/uL (140-450); RED CELL DISTRIBUTION WIDTH 16.9 % (11.6-13.7); WHITE BLOOD COUNT (AUTO) 2.9 K/uL (4.8-10.8)
[2020-09-03 17:54] LABS: ALBUMIN 3.8 g/dL (3.4-5.0); BILIRUBIN,DIRECT 0.4 mg/dL (0.0-0.3); TOTAL BILIRUBIN 1.9 mg/dL (0.0-1.0)
[2020-09-03 18:17] LABS: ANION GAP 14.7 (8-16); CARBON DIOXIDE 27.1 mmol/L (21-32); CHLORIDE 105 mmol/L (98-107); CREATININE 0.9 mg/dL (0.6-1.3); GLUCOSE 111 mg/dL (74-106); POTASSIUM 3.8 mmol/L (3.5-5.1); SODIUM SERUM 143 mmol/L (136-145); UREA NITROGEN, BLOOD 17 mg/dL (7-18)
--- NOTE | 2020-09-03 18:19 | NUR ---
VS WNL. PT RESTING IN BED, RR EVEN AND UNLABORED. BED IN LOWEST POSITION.
[2020-09-03 18:29] LABS: FREE T4 (FREE THYROXINE) 1.1 ng/dL (0.76-1.46); THYROID STIMULATING HORMONE 3.32 uIU/mL (0.34-3.74)
[2020-09-03 18:45] LABS: EOSINOPHILS % (MANUAL) 1 % (0-4); LYMPHOCYTES % (MANUAL) 45 % (20-46); MONOCYTES % (MANUAL) 2 % (5-12)
--- NOTE | 2020-09-03 19:07 | NUR ---
PT ENDORESED TO [facility] FOR CONTINUATION OF CARE.
--- NOTE | 2020-09-03 19:09 | NUR ---
REPORT RECIEVED FROM HELEN. TRANSFER OF CARE AT THIS TIME.
--- NOTE | 2020-09-03 19:19 | NUR ---
PT PROVIDED WITH LIQUID DIET MEAL TRAY.
--- NOTE | 2020-09-03 19:19 | NUR ---
PT IS SITTING UP EATING DINNER. BED LOCKED IN LOWEST POSITION, SIDE RAILS X1.
--- NOTE | 2020-09-03 20:22 | NUR ---
called son Donny Esteves, and will be picking up father. ETA is 2-3 hours. [facility] contacted regarding about transfer back.
--- NOTE | 2020-09-03 21:00 | NUR ---
PT'S DIAPER CHANGED. ALL PT'S NEEDS MET AT THIS TIME.
[2020-09-03 21:36] VITALS: BP 126/66
== END 2020-09-03 21:36 | disposition home or self-care (01) ==
LOC: MED 16:49
DX: R53.1 Weakness (principal); F03.90 Unspecified dementia, unspecified severity, without behavioral disturbance, psychotic disturbance, mood disturbance, and anxiety; G20 Parkinson's disease; E07.9 Disorder of thyroid, unspecified; I10 Essential (primary) hypertension; J44.9 Chronic obstructive pulmonary disease, unspecified; I51.89 Other ill-defined heart diseases; Z85.9 Personal history of malignant neoplasm, unspecified; Z88.0 Allergy status to penicillin; Z88.1 Allergy status to other antibiotic agents; Z79.899 Other long term (current) drug therapy
CPT/HCPCS: 36415; 70450; 71045; 80048; 80076; 84439; 84443; 84484; 85025; 93005; 99285

== ENCOUNTER 2020-12-26 20:56 | Emergency (ER) | payer OTHER, SELFPAY ==
[~2020-12-26] VITALS: Ht 180.3 cm; Wt 81.6 kg
[2020-12-26 21:08] VITALS: BP 123/50
[2020-12-26] MEDS ORDERED: NEOMYCIN/POLYMYXIN/BACITRACIN 0.9 GM/1 PKT TP ONE (21:56)
[2020-12-26] MEDS ORDERED: CLINDAMYCIN 150 MG CAP PO ONE (22:00)
[2020-12-27] MEDS ORDERED: CLIN-223 PO (00:09)
[2020-12-27 11:11] VITALS: BP 153/72
== END 2020-12-27 11:12 ==
LOC: MED 20:56
DX: S51.812A Laceration without foreign body of left forearm, initial encounter (principal); I11.9 Hypertensive heart disease without heart failure; F03.90 Unspecified dementia, unspecified severity, without behavioral disturbance, psychotic disturbance, mood disturbance, and anxiety; J44.1 Chronic obstructive pulmonary disease with (acute) exacerbation; E07.9 Disorder of thyroid, unspecified; Z88.1 Allergy status to other antibiotic agents; Z88.0 Allergy status to penicillin; V00.131A Fall from skateboard, initial encounter; Y93.89 Activity, other specified; Y92.89 Other specified places as the place of occurrence of the external cause; Y99.8 Other external cause status
CPT/HCPCS: 99285

== ENCOUNTER 2021-03-28 04:21 | Emergency (ER) | payer OTHER ==
[~2021-03-28] VITALS: Ht 177.8 cm; Wt 59.0 kg
[~2021-03-28 04:21] MED LIST changes: +CLIN-223 PO
[2021-03-28 04:23] VITALS: BP 150/60
[2021-03-28] MEDS ORDERED: ACETAMINOPHEN EXTRA STRENGTH 500 MG TAB PO ONE (04:55)
[2021-03-28 05:27] LABS: HEMATOCRIT 24.5 % (36-52); HEMOGLOBIN 7.4 g/dL (12.0-18.0); MEAN CORPUSCULAR HEMOGLOBIN 25 pg (27-31); MEAN CORPUSCULAR HGB CONC 30 g/dL (33-37); MEAN CORPUSCULAR VOLUME 83.1 fL (80-94); PLATELET COUNT (AUTO) 188 K/uL (140-450); RED BLOOD CELL COUNT(AUTO) 2.95 MIL/uL (4.20-6.10); RED CELL DISTRIBUTION WIDTH 16.5 % (11.6-13.7); WHITE BLOOD COUNT (AUTO) 6.5 K/uL (4.8-10.8)
[2021-03-28 05:43] LABS: LYMPHOCYTES % (MANUAL) 21 % (20-46)
[2021-03-28 05:44] LABS: BASOPHILS % (MANUAL) 0 % (0-2); EOSINOPHILS % (MANUAL) 0 % (0-4); MONOCYTES % (MANUAL) 7 % (5-12)
[2021-03-28 05:45] LABS: ALBUMIN 3.8 g/dL (3.4-5.0); ANION GAP 10.9 (8-16); ASPARTATE AMINOTRANSFERASE 30 U/L (15-37); CHLORIDE 105 mmol/L (98-107); CREATININE 1.5 mg/dL (0.6-1.3); GLUCOSE 91 mg/dL (74-106); POTASSIUM 3.9 mmol/L (3.5-5.1); SODIUM SERUM 141 mmol/L (136-145); TOTAL BILIRUBIN 1.3 mg/dL (0.0-1.0); UREA NITROGEN, BLOOD 35 mg/dL (7-18)
[2021-03-28 05:55] LABS: APPEARANCE,URINE HAZY (CLEAR); BILIRUBIN,URINE NEGATIVE (NEGATIVE); BLOOD, URINE TRACE-I (NEGATIVE); COLOR,URINE YELLOW (YELLOW); LEUKOCYTE ESTERASE ,URINE NEGATIVE (NEGATIVE); NITRITE, URINE NEGATIVE (NEGATIVE); PH,URINE 5.5 (5.0-9.0); UGLUCOSE NEGATIVE (NEGATIVE)
[2021-03-28 06:07] LABS: RBC,URINE 0-5 /HPF (0-5)
[2021-03-28 06:08] LABS: WBC,URINE 0-5 /HPF (0-5)
[2021-03-28 06:09] LABS: HYALINE CASTS, URINE 0-10 /LPF (None Seen); URINE AMORPHOUS URATE 1+ /HPF (None Seen)
[2021-03-28] MEDS ORDERED: ACET-10509 PO (06:31)
[2021-03-28 09:28] VITALS: BP 118/62
== END 2021-03-28 09:29 ==
LOC: MED 04:21
DX: M25.551 Pain in right hip (principal); M54.5 Low back pain; J44.9 Chronic obstructive pulmonary disease, unspecified; F03.90 Unspecified dementia, unspecified severity, without behavioral disturbance, psychotic disturbance, mood disturbance, and anxiety; I10 Essential (primary) hypertension; E07.9 Disorder of thyroid, unspecified; Z88.0 Allergy status to penicillin; Z88.1 Allergy status to other antibiotic agents; Z85.46 Personal history of malignant neoplasm of prostate; Z85.118 Personal history of other malignant neoplasm of bronchus and lung; Z79.899 Other long term (current) drug therapy; Z79.82 Long term (current) use of aspirin; W19.XXXA Unspecified fall, initial encounter; Y93.01 Activity, walking, marching and hiking; Y92.89 Other specified places as the place of occurrence of the external cause; Y99.8 Other external cause status
CPT/HCPCS: 36415; 72100; 73501; 80053; 81001; 84484; 85025; 93005; 99285

== ENCOUNTER 2021-04-07 21:46 | Emergency (ER) | payer OTHER ==
[~2021-04-07] VITALS: Ht 177.8 cm; Wt 59.0 kg
[~2021-04-07 21:46] MED LIST changes: +ACET-10509 PO
[2021-04-07 21:50] VITALS: BP 103/49
--- NOTE | 2021-04-07 21:50 | NUR ---
RECEIVED IN BED 2 VIA [facility] FROM [facility] WITH C/O ANXIETY. PT HAD C/O OF SOB AND CHEST DISCOMFORT BUT DENIED UPON MEDICS ARRIVAL. PT SAYS "THIS IS THE SAME THING BEFORE, I HAVE ANXIETY". ATTACHED TO CM = A=FIB. O2 SAT = 98%. SKIN IS WARM AND DRY. PT IS VERY PLEASANT, SAYING "I AM READY TO LEAVE" PMH : PTSD, ANXIETY, FL X 5 ALLERGIC : PCN, AZITHROMYCIN
--- NOTE | 2021-04-07 21:50 | NUR ---
pt taken to bed #2
[2021-04-07 22:27] LABS: BASOPHILS % (AUTO) 0.5 % (0.0-2.0); EOSINOPHILS % (AUTO) 0.2 % (0.0-4.0); HEMATOCRIT 26.3 % (36-52); HEMOGLOBIN 7.9 g/dL (12.0-18.0); LYMPHOCYTES # (AUTO) 1.7 K/uL (2.0-11.5); LYMPHOCYTES % (AUTO) 31.9 % (20.5-51.1); MEAN CORPUSCULAR HEMOGLOBIN 25 pg (27-31); MEAN CORPUSCULAR HGB CONC 30 g/dL (33-37); MEAN CORPUSCULAR VOLUME 83.7 fL (80-94); MONOCYTES # (AUTO) 0.2 K/uL (0.8-1.0); MONOCYTES % (AUTO) 4.1 % (1.7-9.3); NEUTROPHILS # (AUTO) 3.5 K/uL (1.8-7.7); NEUTROPHILS % (AUTO) 63.3 % (42.2-75.2); PLATELET COUNT (AUTO) 208 K/uL (140-450); RED BLOOD CELL COUNT(AUTO) 3.14 MIL/uL (4.20-6.10); WHITE BLOOD COUNT (AUTO) 5.5 K/uL (4.8-10.8)
[2021-04-07 22:42] LABS: PROTHROMBIN TIME 11.6 secs (10.8-13.4)
--- NOTE | 2021-04-07 23:00 | NUR ---
RESTING COMFORTABLY. ASSISTED WITH POSITIONING FOR COMFORT
[2021-04-07 23:28] LABS: ALBUMIN 3.6 g/dL (3.4-5.0); ANION GAP 16.3 (8-16); ASPARTATE AMINOTRANSFERASE 20 U/L (15-37); CARBON DIOXIDE 27.6 mmol/L (21-32); CHLORIDE 104 mmol/L (98-107); CREATININE 1.2 mg/dL (0.6-1.3); GLUCOSE 93 mg/dL (74-106); POTASSIUM 3.9 mmol/L (3.5-5.1); SODIUM SERUM 144 mmol/L (136-145); TOTAL BILIRUBIN 1.3 mg/dL (0.0-1.0); UREA NITROGEN, BLOOD 29 mg/dL (7-18)
--- NOTE | 2021-04-08 02:00 | NUR ---
PT TO BE ADMITTED. HAS BEEN DOZING OFF AND ON. CM REMAINS A=FIB
[2021-04-08] MEDS ORDERED: FERR325E14 PO (03:02)
[2021-04-08] MEDS ORDERED: METO25TE2 PO (03:02)
[2021-04-08] MEDS ORDERED: ASPI-1822 PO (03:02)
[2021-04-08] MEDS ORDERED: SYN.05 PO (03:02)
[2021-04-08] MEDS ORDERED: CLON1TAB PO (03:02)
[2021-04-08] MEDS ORDERED: [UNRECOGNIZED DRUG - CODE] PO (03:02)
[2021-04-08] MEDS ORDERED: TAMS0.4C96 PO (03:02)
--- NOTE | 2021-04-08 05:44 | NUR ---
AWAKE, DENIES COMPLAINTS, REMAINS IN A-FIB. WARM BLANKET GIVEN
--- NOTE | 2021-04-08 07:10 | NUR ---
Report and continuation of care received from JOSE CRUZ Emanuel.
--- NOTE | 2021-04-08 07:16 | NUR ---
Patient signed transfer acknowledgement. Urinal provided at bedside per request.
--- NOTE | 2021-04-08 07:29 | NUR ---
Patient asssited in sitting upright position to void. Urine output voided 90mL clear/yellow.
--- NOTE | 2021-04-08 07:29 | NUR ---
Patient assisted back into bed; resting comfortably in semi-fowlers position with 2 blankets for comfort. raw cheese worker remains in place. NAD. Bed locked in lowest position, side rails x 2 for pt safety, call light in reach.
--- NOTE | 2021-04-08 07:30 | NUR ---
IV line patent, flushed with 0.9% NaCl with good blood return; no swelling/coolness/pain to site.
--- NOTE | 2021-04-08 08:20 | NUR ---
ZAK SWAB COLLECTED AND WALKED OVER TO LAB BY JESSICA BILLINGSLEY.
--- NOTE | 2021-04-08 08:35 | NUR ---
Patient resting in position of comfort; semi-fowlers. environmental monitoring technician remains in place; NAD. Bed locked in lowest position, side rails x 2 for pt safety, call light in reach.
--- NOTE | 2021-04-08 09:01 | NUR ---
Patient sitting upright completing meal at this time.
--- NOTE | 2021-04-08 09:20 | NUR ---
Patient completed 80% of breakfast meal tray.
--- NOTE | 2021-04-08 09:31 | NUR ---
Patient asssited in sitting upright position to void. Urine output voided 125mL clear/yellow.
--- NOTE | 2021-04-08 10:10 | NUR ---
Patient disconnected self from site monitor; reoriented to situation and provided status update with transfer.
--- NOTE | 2021-04-08 10:30 | NUR ---
Patient resting with both eyes open in high-fowlers position. pvc monitor in place. NAD; bed locked in lowest position, side rails x 2 for patient safety, call light in reach.
--- NOTE | 2021-04-08 11:30 | NUR ---
Patient resting with both eyes closed in high-fowlers position. authorization coordinator in place. NAD; bed locked in lowest position, side rails x 2 for patient safety, call light in reach.
--- NOTE | 2021-04-08 12:15 | NUR ---
Sangeetha craig in [facility] - 04/08/21 at 1219 by ADRIANA Advised 1400 ETA for [facility] transportation.
--- NOTE | 2021-04-08 12:15 | NUR ---
Patient with both eyes closed in high-fowlers. Awaken to advise of lunch meal tray provided at bedside, however, patient states he is not hungry at this time. memorandum statement clerk in place. NAD; bed locked in lowest position, side rails x 2 for patient safety, call light in reach.
--- NOTE | 2021-04-08 12:15 | NUR ---
Advised 1400 ETA for [facility] transportation.
--- NOTE | 2021-04-08 12:25 | NUR ---
Spoke with Elizabeth via telephone @ [facility]; advised charge nurse is taking report, however, busy in a patient room. ER main # provided and advised CN will call back to receive report.
--- NOTE | 2021-04-08 13:07 | NUR ---
Report given to KEVIN Mckinney. Advised of patient diagnosis, pertinent information, and pickup ETA 1400.
--- NOTE | 2021-04-08 13:08 | NUR ---
Patient to be transferred to [facility]. Is being transferred due to Insurance request; rule out [facility]. Receiving facility has accepting physician and available space. ER physician has signed transfer form. Patient or responsible alliance party has agreed to transfer and signed form. Patient belongings inventoried and will be sent with patient. Copy of nursing notes, lab reports, EKG, Physicians Orders and X-rays to be sent with patient. Report called to JOSE CRUZ Mckinney at receiving facility. [facility] ambulance service has been called for transfer. ETA is 1400.
--- NOTE | 2021-04-08 13:55 | NUR ---
Patient with both eyes open in high-fowlers. Patient completed 80% of meal tray. director alumni relations in place. NAD; bed locked in lowest position, side rails x 2 for patient safety, call light in reach.
[2021-04-08 14:45] VITALS: BP 127/57
--- NOTE | 2021-04-08 14:45 | NUR ---
[facility] ambulance at bedside.
--- NOTE | 2021-04-08 14:45 | NUR ---
Pt report given to [facility] operations manager. Transfer of care at this time.
== END 2021-04-08 14:45 | disposition short-term general hospital (02) ==
LOC: MED 21:46
DX: R07.89 Other chest pain (principal); R00.1 Bradycardia, unspecified; Z20.822 Contact with and (suspected) exposure to COVID-19
CPT/HCPCS: 36415; 71045; 80053; 83880; 84484; 85025; 85610; 85730; 93005; 99285